=== PATIENT | male | born 1950 | race Caucasian/White ===

== ENCOUNTER 2023-12-20 06:07 | Day surgery (SDC) | payer MEDICARE, BC ==
[2023-12-20] MEDS ORDERED: Phenylephrine 0.5% Nasal Spray 15 ML Bot NAS ONE (06:08)
[2023-12-20] MEDS ORDERED: Ketamine 500 mg/10 ML MDV IV ONE (06:08)
[2023-12-20] MEDS ORDERED: Lidocaine 2% 100 MG/5 ML Syringe IVPUSH ONE (06:08)
[2023-12-20] MEDS ORDERED: Propofol 200 MG/20 ML SDV IV ONE (06:08)
[2023-12-20] MEDS ORDERED: Sodium Chloride 0.9% 10 ML Syringe FLUSH PRN (06:15)
[2023-12-20 07:10] VITALS: BP 128/75; PULSE 70
[2023-12-20] MEDS: Lactated Ringers 1,000 ML IV SCH (07:25)
[2023-12-20] MEDS: Simethicone Drops 40 MG/0.6 ML 30 ML Bottle ONE (07:45)
== END 2023-12-20 09:20 | disposition home or self-care (01) ==
LOC: FB.SDS 06:07
PROVIDERS: ATTEND Surgery
DX: Z12.11 Encounter for screening for malignant neoplasm of colon (principal); D12.0 Benign neoplasm of cecum; R19.4 Change in bowel habit; K40.90 Unilateral inguinal hernia, without obstruction or gangrene, not specified as recurrent; I10 Essential (primary) hypertension; K21.9 Gastro-esophageal reflux disease without esophagitis; E66.01 Morbid (severe) obesity due to excess calories; G47.33 Obstructive sleep apnea (adult) (pediatric); Z87.891 Personal history of nicotine dependence; Z68.41 Body mass index [BMI] 40.0-44.9, adult; Z80.0 Family history of malignant neoplasm of digestive organs; Z86.010 Personal history of colon polyps; Z79.899 Other long term (current) drug therapy
CPT/HCPCS: 00811; 88305; 99100; A9270-GY; J2704; J3490; J7120